=== PATIENT | female | born 1950 | race Two or more races ===

== ENCOUNTER 2016-11-25 22:58 | Emergency (ER) | payer OTHER ==
--- NOTE | ~2016-11-25 | ER ---
PATIENT'S NAME: [facility] AGE: 65 Y [address] ROOM: [place] [address] LOCATION: [facility] ADMIT DATE: 11/25/2016 ER/Outpatient Report DISCHARGE DATE: 11/26/2016 FAMILY PHYSICIAN: Physician, Unknown ATTENDING PHYSICIAN: Kathy Henao Admission date and time documented on the medical record. I saw the patient at 2310 hours. CHIEF COMPLAINT: Left anterior chest pain and pressure. HISTORY OF PRESENT ILLNESS: This is a 65-year-old female who comes in with 30-minute history of left anterior chest pain and pressure, nonradiating. She has accompanying diaphoresis. No shortness of breath, nausea, vomiting, lightheadedness, or dizziness. No syncope or near syncope. No fall or trauma. Here in the emergency room, her pressure is gone. She does have a history of hypertension. Also has a history of paroxysmal atrial fibrillation along with insulin-dependent diabetes mellitus. No abdominal pain. No diarrhea or urinary symptoms. No joint or muscle swelling, redness, or pain. No skin eruptions or rash. No history of neuro changes, psych issues, or endocrine problems. HOME MEDICATIONS: See attached medication list. ALLERGIES: NONE. SOCIAL HISTORY: Nonsmoker and nondrinker. SIGNIFICANT PAST MEDICAL HISTORY: Insulin-dependent diabetes mellitus, hypertension, paroxysmal atrial fibrillation, and dyslipidemia. OPERATIONS: Hysterectomy, cholecystectomy, and . REVIEW OF SYSTEMS: All systems reviewed by me are negative with the exception of those discussed in the history of the present illness. PHYSICAL EXAMINATION: PATIENT'S NAME: [facility] AGE: 65 Y [address] ROOM: [place] [address] LOCATION: [facility] ADMIT DATE: 11/25/2016 ER/Outpatient Report DISCHARGE DATE: 11/26/2016 FAMILY PHYSICIAN: Physician, Unknown ATTENDING PHYSICIAN: Kathy Henao VITAL SIGNS: Temperature 97.9 tympanic, pulse 70 and regular, respirations 16, blood pressure 196/84, and O2 saturation on room air is 99%. HEAD: Normocephalic. EYES, EARS, NOSE, THROAT: Clear. Mucous membranes moist. NECK: Negative. LUNGS: Clear. Good air flow. No rales, rhonchi, or wheezes. HEART: Regular. Pulses are palpable. No chest wall or ribcage pain to palpation. ABDOMEN: Soft, nondistended, and nontender. Good bowel tones. No organomegaly or abnormal mass palpable. EXTREMITIES: Without peripheral edema or cyanosis. NEUROVASCULAR: Intact. SKIN: Clear. DIAGNOSTIC DATA: EKG showed sinus rhythm. No acute ST elevation, ischemic changes, or arrhythmia. Chest x-ray showed no acute infiltrate. There might be some mild cardiomegaly. We will review x-ray with the radiologist. LABORATORY DATA: CMS was normal except for a low potassium of 3.2, elevated glucose 123, magnesium was 2.0, CPK was 82. Point of care cardiac enzymes were normal. D- dimer was slightly [place] 0[place]64[place] [address], 68 segs, 24 lymphs, 5 monos, 2 eos. Hemoglobin is 13.9, hematocrit 40.7, and platelet count 232,000. PTT was 25, pro-time is 10.2 with an INR 0.95. Venous pH was 7.41. ProBNP was 233. IMPRESSION: 1. Left anterior chest pain, rule out myocardial etiology. 2. Insulin-dependent diabetes mellitus. 3. Hypertension. 4. Dyslipidemia. 5. History of paroxysmal atrial fibrillation. PLAN: I did discuss the patient with the family. They did not want to do a CT scan of the chest with PE protocol. They asked for an echocardiogram which will be scheduled for tomorrow morning with also repeat cardiac enzymes tomorrow morning as an outpatient. The patient was dismissed home. Continue present home medications and care. Diet and fluids as tolerated. Rest. Present to hospital admission around 0800 hours tomorrow morning. Follow up with personal physician as needed. PATIENT'S NAME: LAUREN VASQUEZ [facility] AGE: 65 Y [address] ROOM: [place] [address] LOCATION: [facility] ADMIT DATE: 11/25/2016 ER/Outpatient Report DISCHARGE DATE: 11/26/2016 FAMILY PHYSICIAN: Physician, Unknown ATTENDING PHYSICIAN: Kathy Henao KATHY HENAO MD SDS/modl /[id number] d: 11/26/16210 t: 11/26/16 1813, OUTPATIENT REPORT
[2016-11-25 23:34] LABS: BICARBONATE 31.1 mmol/L (18.0-23.0); PCO2 49 mmHg (35-45); PO2 46 mmHg (80-90)
[2016-11-25 23:35] LABS: BASOPHIL # 0.1 K/uL (0.0-0.2); BASOPHIL % 0.4 %; EOSINOPHIL # 0.2 K/uL (0.0-0.5); HEMATOCRIT 40.7 % (33.0-46.0); HEMOGLOBIN 13.9 g/dL (10.0-15.0); IMMATURE GRANULOCYTE % 0.2 %; LYMPHOCYTE % 24.4 %; MCH 30.1 pg (27.0-34.0); MCHC 34.2 gm/dL (32.0-36.5); MCV 88.1 fl (83.0-98.0); MONOCYTE # 0.6 K/uL (0.0-1.0); MONOCYTE % 4.9 %; MPV 10.5 fl (9.4-12.4); NEUTROPHIL # (ANC) 8.3 K/uL (1.8-7.8); NEUTROPHIL % 68.1 %; NRBC % 0 /100WBC (0-0.00); PLATELET COUNT 232 K/uL (150-450); RBC 4.62 M/uL (3.50-5.50); RDW-CV 12.8 % (11.9-14.6); WBC 12.2 K/uL (4.0-11.0)
[2016-11-25 23:45] LABS: INR - (THERAPEUTIC) 0.97 (0.92-1.07); PROTIME 10.2 SECONDS (9.8-11.4); PTT 25 SECONDS (25-32)
[2016-11-25 23:55] LABS: ALBUMIN 3.8 gm/dL (3.5-5.0); ALK PHOS 101 IU/L (33-138); ALT 13 IU/L (12-78); ANION GAP 14.2 (10.0-19.0); AST 15 IU/L (10-40); BLOOD UREA NITROGEN 14 mg/dL (6-24); CALCIUM 9.4 mg/dL (8.5-10.5); CHLORIDE 102 mMol/L (96-110); CO2 27 mMol/L (22-32); CPK 82 IU/L (21-215); ESTIMATED GFR (MDRD EQUATION) 56; POTASSIUM 3.2 mMol/L (3.7-5.1); SODIUM 140 mMol/L (135-145); TOTAL BILIRUBIN 1.4 mg/dL (0.0-1.5); TOTAL PROTEIN 7.8 g/dL (6.0-8.4)
== END 2016-11-26 00:37 | disposition disaster alternative care site (69) ==
LOC: EDBD 22:58 → GMED 22:58
PROVIDERS: Emergency Medicine
DX: R07.89 Other chest pain (principal); I10 Essential (primary) hypertension; E11.9 Type 2 diabetes mellitus without complications; E78.5 Hyperlipidemia, unspecified; Z86.79 Personal history of other diseases of the circulatory system; Z90.710 Acquired absence of both cervix and uterus; Z90.49 Acquired absence of other specified parts of digestive tract; Z79.899 Other long term (current) drug therapy

== ENCOUNTER → 2016-11-26 | Outpatient (CLI) | payer OTHER ==
--- NOTE | ~2016-11-26 | ECHO ---
Transthoracic Echocardiography Report (TTE) Demographics Patient Name LAUREN VASQUEZ Date of Study 11/26/2016 Patient Number [id number] Visit Number [id number] Date of 1950 Room Number Accession Number [id number] Gender Female Age 66 year(s) Referring Celine Hoskins MD [employer]ing Mill Setter Julius Polo RDCS, Physician RVT Physician Interpreting Celine Hoskins MD Senior Scientist Physician Supervising Ordering Physician Celine Hoskins MD, MD/P Nurse Stress [employer]otive Design Drafter Conclusions Contractility Score Summary Normal Left Ventricular contractility was noted. Summary The estimated left ventricular ejection fraction is 60-65%. The left ventricle is normal in size . Diastolic assessment reveals Grade I diastolic dysfunction. The left atrium is moderately dilated by LA volume index measurement. The ascending aorta appears mildly dilated. The maximum diameter measures 3.4 cm. Procedure Type of Study TTE procedure:2D Echocardiogram. Procedure Date Date: 11/26/2016 Start: 08:46 AM Study Location: Echo Lab Technical Quality: Adequate visualization Indications:Chest pressure. Appropriate Use Criteria: 9 Patient Status: Routine HR: 60 bpm M-Mode/2D Measurements LV Diastolic Dimension: 4.02 cm LV Systolic Dimension: 2.14 cm LV Septum Diastolic: 0.85 cm LV PW Diastolic: 0.81 cm Cardiac Output: 4.02 l/min LA Dimension: 3.3 cm LVOT: 1.7 cm LVOT VTI: 29.5 cm RV Base: 2.31 cm LV Stroke volume: 66.93 ml RV Length: 5.7 cm TAPSE: 2.16 cm TDI-S': 14 cm/s Doppler Measurements AV Peak Velocity: 1.47 m/s MV Peak E-Wave: 0.85 m/s AV Peak Gradient: 8.64 mmHg MV Peak A-Wave: 0.99 m/s AV Mean Gradient: 5 mmHg MV E/A Ratio: 0.86 LVOT Peak Velocity: 1.18 m/s MV P1/2t: 74 msec TR Gradient:21.16 mmHg PV Peak Velocity: 1.13 m/s Estimated RAP:5 mmHg PV Peak Gradient: 5.11 mmHg Estimated RVSP: 26 mmHg Estimated PASP: 26.16 mmHg E' Septal Velocity: 0.05 m/s A' Septal Velocity: 0.1 m/s E' Lateral Velocity: 0.09 m/s A' Lateral Velocity: 0.14 m/s Findings Left Ventricle The left ventricle is normal in size . Diastolic assessment reveals Grade I diastolic dysfunction. Right Ventricle Normal right ventricle structure and function. Left Atrium Normal left atrial size. Right Atrium Normal right atrial size. Mitral Valve Trivial mitral regurgitation by color Doppler. Aortic Valve Normal aortic valve structure and function. Tricuspid Valve Mild tricuspid regurgitation by color Doppler. Pulmonic Valve Normal pulmonic valve structure and function. Pericardial Effusion No evidence of pericardial effusion. Miscellaneous Visualized portions of the aortic root and ascending aorta appear normal in size. Pleural Effusion No evidence of pleural effusion. Contractility Score LV regional wall motion:(0-Non visualized 1-Normal 2-Hypokinesis 3-Akinesis 4-Dyskinesis 5-Aneurysm) Signature dtt: Gato Berger (cardio) dtd: 11/26/16 0846 Physician Self Edit
[2016-11-26 09:44] LABS: CPK 73 IU/L (21-215)
== END | disposition disaster alternative care site (69) ==
LOC: GCAR 01:50
PROVIDERS: Internal Medicine Interventional Cardiology
DX: R07.89 Other chest pain (principal); I10 Essential (primary) hypertension; I51.9 Heart disease, unspecified; I72.9 Aneurysm of unspecified site; I77.819 Aortic ectasia, unspecified site